=== PATIENT | male | born 1955 | race Caucasian/White ===

== ENCOUNTER 2019-10-25 15:03 | Inpatient (IN) | payer BC ==
[~2019-10-25] VITALS: Ht 175.3 cm; Wt 98.0 kg
--- NOTE | ~2019-10-25 | DS ---
PATIENT:NADEEM VILLASENOR :59 MEDICAL RECORD: [id number] DISCHARGE SUMMARY ADMISSION DATE: 10/30/19 DISCHARGE DATE: 11/02/19 DATE OF ADMISSION: 10/30/2019 DATE OF DISCHARGE: 11/02/2019 ADMISSION DIAGNOSES: 1. Cecal adenocarcinoma. 2. Hemochromatosis. DISCHARGE DIAGNOSES: 1. Cecal adenocarcinoma. 2. Hemochromatosis. PROCEDURE: Hand-assisted laparoscopic right hemicolectomy on, 10/30/2019 CONSULTATIONS: None. Had courtesy consult with Dr. Ramon with oncology. REPORT OF HOSPITALIZATION: The patient was admitted to the hospital after a successful hand-assisted laparoscopic right hemicolectomy. He had a normal postoperative course. He began having bowel function on postop day #2, at which time, he was started on a diet. He tolerated the diet and was able to be advanced up and at the time of discharge, he was tolerating a full liquid diet. His path report came back showing a T1 lesion with of 0 of 4 lymph nodes involved. The patient was then felt to be stable for discharge home. DISCHARGE INSTRUCTIONS: Return to clinic or call if any questions or concerns, fevers, chills, nausea, vomiting or worsening abdominal pain. ACTIVITIES: No heavy lifting or straining for 6 weeks postoperatively. FOLLOWUP: In clinic with me in 10-14 days. DISCHARGE MEDICATIONS: Sherwood 10, fenofibrate 40 mg morning, , multivitamin daily and levothyroxine 112 mcg daily. DIET: Regular. TRANSINT:[id number] Voice Confirmation ID: [id number] DOCUMENT ID: [id number] GABRIELA LAO MD CC: [id number] DICTATION DATE: 11/02/19 1241 DIRECTOR OF PROGRAMMING: 11/03/19 0344 DIS IN 11/02/19 [facility] [address] [place] [address]
[2019-10-29] MEDS ORDERED: FENOGLIDE40 MG (15:45)
[2019-10-29] MEDS ORDERED: LEVO-T112 MCG PO (15:46)
[2019-10-29] MEDS ORDERED: MULTI-DAY VITAM1 TAB PO (15:46)
[2019-10-29] MEDS ORDERED: FERROUS SULFAT325 MG PO (15:47)
[2019-10-30] MEDS ORDERED: FLAGYL500 MG PO (08:41)
[2019-10-30] MEDS ORDERED: NEOMYCIN SULFA500 MG PO (08:41)
[2019-10-30 08:44] VITALS: BP 165/90; BMI 31.9
[2019-10-30 09:40] LABS: APTT 29.9 SECONDS (22.8-39.4); INR 1.07 (0.85-1.17); PROTIME 13.8 SECONDS (11.6-15.0)
[2019-10-30 09:42] LABS: BASOPHILS 0.4 % (0-2); EOSINOPHILS 4.4 % (0-7); HEMATOCRIT 42.4 % (42.0-54.0); IMMATURE GRANULOCYTES 0.3 % (0-5); LYMPHOCYTES 24.4 % (15-50); MEAN PLATELET VOLUME 10.2 fL (7.4-10.4); MONOCYTES 7.5 % (2-11); PLATELET COUNT 258 10x3/uL (130-400); RBC 4.66 10x6/uL (4.20-6.10); WBC 7.1 10x3/uL (4.8-10.8)
[2019-10-30 10:00] LABS: ANION GAP 11.3 mmol/L (8-16); CALCIUM 8.9 mg/dL (8.5-10.1); CREATININE - SERUM 1.9 mg/dL (0.6-1.3); POTASSIUM - SERUM 4.3 mmol/L (3.5-5.1)
[2019-10-30 12:14] LABS: PLATELET ESTIMATE NORMAL; ROULEAUX OCC; SMUDGE CELLS OCC
--- NOTE | 2019-10-30 14:33 | NUR ---
TRANSFERING CARE TO GELACIO CALDERA [id number]
--- NOTE | 2019-10-30 14:43 | NUR ---
PATIENT HAS 2WAY BENDER CATHETER, STATLOCK ON RIGHT INNER THIGH, 400CC URINE RETURN IN DRAINAGE BAG.
--- NOTE | 2019-10-30 15:00 | NUR ---
RECIEVED PT FROM PACU, VSS. IV TO THE RIGHT FOREARM WITH NORMAL SALINE @125, SCD'S ON. PT IS ON Q15 MINUTE FOR POST OP VITALS. RESTING COMFORTABLY IN BED. ALERT AND ORIENTED X4, JUST SLIGHTLY GROGGY FROM ANESTHESIA. DENIES ANY NEEDS. BED IN LOWEST POSITION, BED RAILS X2, CALL LIGHT WITHIN REACH. WILL CONTINUE TO MONITOR.
--- NOTE | 2019-10-30 15:06 | NUR ---
VERIFYING SPECIALIST BIPIN RUANO IN ROOM, POST OP VITALS FOLLOWS; BP 178/85 O2 93% ROOM AIR, PULSE 89. TEMP 98.0 [id number]
[2019-10-30 16:06] VITALS: BP 178/85
[2019-10-30 16:26] VITALS: BP 178/85; BMI 31.9
[2019-10-30 20:00] VITALS: BP 138/74
--- NOTE | 2019-10-30 20:15 | NUR ---
LYING IN BED. ALERT AND ORIENTED X4. RESP EVEN AND NONLABORED. RATES PAIN IN ABD 2. HAS DILAUDID PAYABLE MANAGER. MIDLINE ABD DRSG IS INTACT WITH OLD DRAINAGE MARKED. LAP SITE X2 WITH DRSG INTACT AND OLD DRAINAGE MARKED ON MID UPPER QUAD INCISION. BENDER CATH PATENT AND DRAINING CLEAR YELLOW URINE. SCDS IN USE. NONPROD COUGH NOTED. INSTRUCTED ON USE OF I.S. NS @ 125 MLHR INFUSING IN RT FOREARM. SR ELEVATED X2. CL IN REACH.
[2019-10-31] VITALS: BP 139/61
--- NOTE | 2019-10-31 03:14 | NUR ---
HAS RESTED WELL TONIGHT. NO DISTRESS. ARRNO ICE CHIPS. CL IN REACH.
[2019-10-31 04:00] VITALS: BP 122/73
[2019-10-31 06:02] LABS: ANION GAP 14.8 mmol/L (8-16); CALCIUM 8.2 mg/dL (8.5-10.1); POTASSIUM - SERUM 4.8 mmol/L (3.5-5.1)
[2019-10-31 06:04] LABS: HEMATOCRIT 38.6 % (42.0-54.0); HEMOGLOBIN 12.3 g/dL (13.5-17.5); MCH 29.8 pg (26.0-34.0); MCHC 31.9 g/dL (31.0-37.0); MEAN PLATELET VOLUME 10.4 fL (7.4-10.4); PLATELET COUNT 272 10x3/uL (130-400); RBC 4.13 10x6/uL (4.20-6.10)
[2019-10-31 06:05] LABS: MCV 93.5 fL (80.0-100.0); WBC 12.1 10x3/uL (4.8-10.8)
--- NOTE | 2019-10-31 07:41 | NUR ---
RESTING IN BED, NO DISTRESS NOTED, IV INFUSING WITH HIGHWAY TRUCK DRIVER, CONT TO MONITOR PAIN, NPO
--- NOTE | 2019-10-31 08:11 | OP ---
PATIENT NAME: NADEEM VILLASENOR MEDICAL RECORD: [id number] :59 LOCATION:[facility] [id number] ADMISSION DATE:10/30/19 SURGEON: KHALIF LAO MD DATE OF OPERATION: 10/30/2019 PREOPERATIVE DIAGNOSES: 1. Cecal adenocarcinoma. 2. Anemia. 3. Hemochromatosis. 4. Hypercholesterolemia. 5. Hypothyroidism. POSTOPERATIVE DIAGNOSES: 1. Cecal adenocarcinoma 2. Anemia. 3. Hemochromatosis. 4. Hypercholesterolemia. 5. Hypothyroidism. PROCEDURE: Hand-assisted laparoscopic right hemicolectomy. SURGEON: Khalif Lao MD REPORT OF PROCEDURE: The patient's abdomen was prepped and draped in sterile fashion. A skin incision was made around the umbilicus and electrocautery was used to dissect through the subcutaneous tissues and fascia until we entered the abdominal cavity. A Gelport was inserted with a 5-mm trocar within it. With this, we were able to insufflate the abdomen and placed a 5-mm trocar in the epigastrium and another was placed in the right subcostal region. We began by mobilizing the right colon medially by taking down the white line of Toldt using electrocautery. There were some adhesions present of the cecum and distal small bowel and appendix to the lateral abdominal wall and these were all taken down carefully with electrocautery and blunt dissection. We came around the patient's hepatic flexure using electrocautery and took down some of these adhesions. We eventually were able to mobilize the whole right colon medially and could visualize the patient's duodenum, which was preserved. The colon was then eviscerated through the wound protector. The distal small bowel was transected with a 55 blue load GLADYS stapler. The transverse colon was transected on its proximal aspect using a 55 blue load GLADYS stapler. The mesentery was taken down with sequential clamp and tie technique, we sent the specimen off for permanent. The anastomosis was performed in a [id number] fashion by making small openings in the distal small bowel and proximal colon and firing a 55 blue load GLADYS stapler. We then closed off the enterotomies with a 30 blue load TA stapler and oversewed the staple lines with 3-0 silks. The anastomosis was placed back into the abdominal cavity. We irrigated out the abdomen thoroughly with normal saline and assured there was no sign of any bleeding. I saw no evidence of any metastatic disease or nodules anywhere throughout the abdominal cavity. At this point, the ports and insufflation were then removed. The midline fascia was closed with a running #1 loop PDS times 2. The skin incisions were then all closed with lydia. COMPLICATIONS: None. CONDITION: Stable. OPERATIVE REPORT [id number] NADEEM VILLASENOR ANESTHESIA: General endotracheal. BLOOD LOSS: 100 mL. TRANSINT:[id number] Voice Confirmation ID: [id number] DOCUMENT ID: [id number] KHALIF LAO MD at 0811 CC: BLUE HEARN and DL SAUER MD [id number] DICTATION DATE: 10/30/19 1350 PLANT TAXONOMY TEACHER: 10/31/19 0053 ADM IN [facility] [address] [place] [address]
[2019-10-31 09:14] VITALS: BP 139/87
[2019-10-31 10:34] LABS: ANISOCYTOSIS OCC; LYMPHOCYTES 14 % (15-50); MONOCYTES 5 % (2-11); NEUTROPHILS 80 % (40-80); PLATELET ESTIMATE NORMAL
[2019-10-31 12:55] VITALS: Ht 175.3 cm; Wt 98.0 kg
--- NOTE | 2019-10-31 13:09 | NUR ---
REMOVED BENDER, ARRON WELL, MONITOR OUTPUT
[2019-10-31 13:59] VITALS: BP 148/75
[2019-10-31 17:10] VITALS: BP 138/79
[2019-10-31 20:00] VITALS: BP 137/82
[2019-11-01] VITALS: BP 169/84
--- NOTE | 2019-11-01 01:23 | NUR ---
DR SAUER IN AT 1999 PT HAD F/C REMOVED AT 1500 HAD NO URIN OUTPUT YET. VERABLE ORDER TO DO BLADER SCAN AND DO INOUY CATH IF NEEDED IF PT DID NOT VOID SOON. AT 215 BLADER SCAN COMPLETED WITH 340 SHOWING ON SCAN. IN OUT CATH COMPLETED PER PROTOCOL WITH 400CC YELLOW URING OUT. PT STATED HE FELT BETTER.
--- NOTE | 2019-11-01 02:29 | NUR ---
PT. C\O FEELING BLADDER FEELING FULL AND STILL UNABLE TO URNATE. STOOD AT BEDSIDE WITH WATER RUNNING WITH NO RESULT. BLADER SCAN SHOWING 410 INOUT CATH PER ORDER PRFORMED BY PROTOCOL WITH 400 CC OUT PUT WITH SOME SEDAMENT NOTED. PT STATED HE FELT MUCH BETTER.
--- NOTE | 2019-11-01 03:01 | NUR ---
PATIENT IS ALERT AND ORENTED ABLE TO VIOCE NEEDS AND WANTS TO STAFF. IV TO RIGHT FOREARM WITH NS AT 125 AND DILAUDIDI SOLID PROPELLANT PROCESSOR AT 0.2,10, 4. O2 AT 2LETERS PRN.INCENTIVE SPIROMETER IN [place] AT BEDSIDE ICE CHIPS AT BEDSIDE. SCD'S IN PLACE AND ON.
[2019-11-01 04:00] VITALS: BP 112/73
[2019-11-01 04:37] LABS: HEMATOCRIT 36.1 % (42.0-54.0); HEMOGLOBIN 11.3 g/dL (13.5-17.5); LYMPHOCYTES 9.9 % (15-50); MCH 29.4 pg (26.0-34.0); MCHC 31.3 g/dL (31.0-37.0); MCV 93.8 fL (80.0-100.0); MEAN PLATELET VOLUME 10.2 fL (7.4-10.4); NEUTROPHILS 84.7 % (40-80); RBC 3.85 10x6/uL (4.20-6.10); RDW 24.3 % (11.5-14.5); WBC 12.1 10x3/uL (4.8-10.8)
[2019-11-01 04:38] LABS: PLATELET COUNT 214 10x3/uL (130-400)
[2019-11-01 04:49] LABS: ANION GAP 9.1 mmol/L (8-16); CALCIUM 7.7 mg/dL (8.5-10.1); CREATININE - SERUM 1.7 mg/dL (0.6-1.3); POTASSIUM - SERUM 4.1 mmol/L (3.5-5.1)
--- NOTE | 2019-11-01 07:17 | NUR ---
PT IS RESTING IN BED WITH EYES CLOSED. RESPIRATIONS ARE EVEN AND UNLABORED. PT IS EASILY AROUSED WITH VERBAL STIMULATION. PT IS AAO X 4 UPON AROUSAL. PIV TO RIGHT FA INFUSING WITHOUT DIFFICULTY. DILAUDID ABRASIVE MIXER PER ORDER. PAIN BUTTON WITHIN REACH. SCDS ARE ON BLE. PT DENIES PRESENCE OF PAIN/N/V AT THIS TIME. MIDLINE ABDOMINAL INCISION NOTED. DRESSING WITH SCANT AMOUNT OF DRAININAGE NOTED. (2) UPPER ABDOMINAL INCISIONS NOTED. DRESSING ARE CDI. PT DENIES HAVING HAD BM SINCE SURGERY. PT REPORTS THAT HE IS PASSING GAS. BS ARE HYPOACTIVE X 4. PT ABDOMEN IS DISTENDED AND FIRM. PT DENIES TENDERNESS UPON PALPATION. ALL FALL PRECAUTIONS IN PLACE. BED IS IN THE LOWEST POSITION. CALL LIGHT AND BEDSIDE TABLE ARE WITHIN REACH. SIDE RAILS X 2. PT DENIES FURTHER NEEDS. WILL CONT TO MONITOR.
[2019-11-01 09:12] VITALS: BP 160/84
--- NOTE | 2019-11-01 13:00 | NUR ---
PT WITH BM PT REPORTS BRIGHT RED BLOOD NOTICED IN STOOL. PT DENIES PRESENCE OF PAIN WITH DEFECATION. UNABLE TO VISUALIZE STOOL. PT ASSISTED BACK TO BED WITHOUT DIFFICULTY. PT DENIES PRESENCE OF PAIN/N/V AT THIS TIME. BED IS IN THE LOWEST POSITION. CALL LIGHT AND BEDSIDE TABLE ARE WITHIN REACH. SIDE RAILS X 2. PT DENIES FURTHER NEEDS. WILL CONT TO MONITOR.
[2019-11-01 13:20] VITALS: BP 146/82
--- NOTE | 2019-11-01 13:46 | NUR ---
PT C/O "TRYING TO COUGH SOMETHING UP". DR LAO PAGED AND NOTIFIED OF PT CONCERN. TELEPHONE ORDER RECD MUCINEX 600MG PO X 1. WILL PLACE ORDER.
--- NOTE | 2019-11-01 14:07 | MORECARE ---
CASE MANAGEMENT DISCHARGE SUMMARY PATIENT: NADEEM VILLASENOR UNIT: [id number] ADM DATE: 10/30/19 AGE: 64 : 59 SEX: M ROOM/BED: D.2209 AUTHOR: HERO,DOC PHYSICIAN: REFERRING PHYSICIAN: GABRIELA LAO MD DATE OF SERVICE: 11/01/19 Discharge Plan Patient Name: NADEEM VILLASENOR Facility: [facility]:[place] : 1955 Planned Disposition: Home Anticipated Discharge Date: Discharge Date: Expected LOS: Initial Reviewer: [email or web address] Initial Review Date: 10/30/2019 Generated: 11/01/19 3:06 pm Comments DCP- Discharge Planning Updated by [email or web address]: Rosemarie Salcido on 11/01/19 1:[address] Patient Name: NADEEM VILLASENOR Admission Status: Elective Accout number: [id number] Admission Date: 10-30-2019 : 1955 Admission Diagnosis: Attending: GABRIELA LAO Current LOS: 2 Anticipated DC Date: Planned Disposition: Home Primary Insurance: [email or web address] [facility] Discharge Planning Comments: CM met with patient to complete initial dc planning assessment. CM educated patient on the CM role and verbal consent given by patient to complete assessment. Patient lives at home with his where he is independent with his care. At discharge patient plans to return home and feels this is a safe discharge. CM discussed availability of home health, rehab services, and medical equipment. Patient denied known discharge needs at this time. CM will continue to follow and will assist as needed with dc plans/needs. Deep Submergence Vehicle Crewmember: Rosemarie Salcido DCPIA - Discharge Planning Initial Assessment Updated by [email or web address]: Rosemarie Salcido on 11/01/19 2:06 pm * Is the patient Alert and Oriented? Yes * How many steps to enter\exit or inside your home? * PCP [place] * [facility]acy [facility] * Preadmission Environment Home with Family * ADLs Independent * Equipment None * List name and contact numbers for known caregivers / representatives who currently or will assist patient after discharge: DAVIS ORTIZ () [phone] * Verbal permission to speak to the caregivers and representatives has been obtained from the patient. N/A * Community resources currently utilized None * Additional services required to return to the preadmission environment? No * Can the patient safely return to the preadmission environment? Yes * Has this patient been hospitalized within the prior 30 days at any hospital? No Patient Name: NADEEM VILLASENOR Page [phone] at 1407 All edits/amendments must be made on the electronic document DICTATION DATE: 11/01/191406 SPORTS TEAM MARKETING INTERN: CELESTE 11/01/191406 RPT#: [id number] DC DATE: STATUS: ADM IN [facility] [address] [place] [address] END OF REPORT
[2019-11-01 20:00] VITALS: BP 160/88
[2019-11-02] VITALS: BP 176/84
[2019-11-02 04:00] VITALS: BP 174/92
--- NOTE | 2019-11-02 07:35 | NUR ---
PT RESTING IN BED WITH EYES CLOSED, EASILY AROUSED TO SPEECH, ALERT AND ORIENTED. IV LOCATED TO RIGHT FOREARM RUNNING NS @ 75 WITH DILAUDID SKIVER COUNTER PRESENT. NO CURRENT S/S OF DISTRESS AT THIS TIME, DENIES CURRENT NEEDS, WILL CONT TO MONITOR.
[2019-11-02 09:08] VITALS: BP 157/83
[2019-11-02 12:15] VITALS: BP 155/81
[2019-11-02] MEDS ORDERED: HYDROCODON-ACE1 EA10 PO (12:31)
--- NOTE | 2019-11-02 12:57 | MORECARE ---
CASE MANAGEMENT DISCHARGE SUMMARY PATIENT: NADEEM VILLASENOR UNIT: [id number] ADM DATE: 10/30/19 AGE: 64 : 59 SEX: M ROOM/BED: D.2209 AUTHOR: HERO,DOC PHYSICIAN: REFERRING PHYSICIAN: GABRIELA LAO MD DATE OF SERVICE: 11/02/19 Discharge Plan Patient Name: NADEEM VILLASENOR Facility: [facility]:[place] : 1955 Planned Disposition: Home Anticipated Discharge Date: 11/02/19 Discharge Date: Expected LOS: 3 Initial Reviewer: [email or web address] Initial Review Date: 10/30/2019 Generated: 11/02/19 1:57 pm Comments DCP- Discharge Planning Updated by [email or web address]: Rosemarie Salcido on 11/01/19 1:[address] Patient Name: NADEEM VILLASENOR Admission Status: Elective Accout number: [id number] Admission Date: 10-30-2019 : 1955 Admission Diagnosis: Attending: GABRIELA LAO Current LOS: 2 Anticipated DC Date: Planned Disposition: Home Primary Insurance: [employer] [facility] Discharge Planning Comments: CM met with patient to complete initial dc planning assessment. CM educated patient on the CM role and verbal consent given by patient to complete assessment. Patient lives at home with his where he is independent with his care. At discharge patient plans to return home and feels this is a safe discharge. CM discussed availability of home health, rehab services, and medical equipment. Patient denied known discharge needs at this time. CM will continue to follow and will assist as needed with dc plans/needs. Wedding Decorator: Rosemarie Salcido DCPIA - Discharge Planning Initial Assessment Updated by [email or web address]: Rosemarie Salcido on 11/01/19 2:06 pm * Is the patient Alert and Oriented? Yes * How many steps to enter\exit or inside your home? * PCP [facility]ADA * [facility] * Preadmission Environment Home with Family * ADLs Independent * Equipment None * List name and contact numbers for known caregivers / representatives who currently or will assist patient after discharge: DAVIS ORTIZ () [phone] * Verbal permission to speak to the caregivers and representatives has been obtained from the patient. N/A * Community resources currently utilized None * Additional services required to return to the preadmission environment? No * Can the patient safely return to the preadmission environment? Yes * Has this patient been hospitalized within the prior 30 days at any hospital? No Last DP export: 11/01/19 1:07 p Patient Name: NADEEM VILLASENOR Page [phone] at 1257 All edits/amendments must be made on the electronic document DICTATION DATE: 11/02/19 1257 ONLINE MARKETING STRATEGIST: CELESTE 11/02/19 1257 RPT#: [id number] DC DATE: STATUS: ADM IN [facility] [address] [place] [address] END OF REPORT
--- NOTE | 2019-11-02 13:09 | MORECARE ---
CASE MANAGEMENT DISCHARGE SUMMARY PATIENT: NADEEM VILLASENOR UNIT: [id number] ADM DATE: 10/30/19 AGE: 64 : 59 SEX: M ROOM/BED: D.2209 AUTHOR: HERO,DOC PHYSICIAN: REFERRING PHYSICIAN: GABRIELA LAO MD DATE OF SERVICE: 11/02/19 Discharge Plan Patient Name: NADEEM VILLASENOR Facility: [facility]:[place] : 1955 Planned Disposition: Home Anticipated Discharge Date: 11/02/19 Discharge Date: Expected LOS: 3 Initial Reviewer: [email or web address] Initial Review Date: 10/30/2019 Generated: 11/02/19 2:08 pm Comments DCP- Discharge Planning Updated by [email or web address]: Leidy Baker on 11/02/19 12:[address] CM VISITED THE PATIENT AND HIS AT THE BEDSIDE. THEY ARE READY FOR DISCHARGE. CM ASK IF THEY HAD ANY DISCHARGE NEEDS. BOTH DENIED NEEDS. CM ADVISED ALLIED HEALTH TEACHER. DCP- Discharge Planning Updated by [email or web address]: Rosemarie Salcido on 11/01/19 1:[address] Patient Name: NADEEM VILLASENOR Admission Status: Elective Accout number: [id number] Admission Date: 10-30-2019 : 1955 Admission Diagnosis: Attending: GABRIELA LAO Current LOS: 2 Anticipated DC Date: Planned Disposition: Home Primary Insurance: [employer] [facility] Discharge Planning Comments: CM met with patient to complete initial dc planning assessment. CM educated patient on the CM role and verbal consent given by patient to complete assessment. Patient lives at home with his where he is independent with his care. At discharge patient plans to return home and feels this is a safe discharge. CM discussed availability of home health, rehab services, and medical equipment. Patient denied known discharge needs at this time. CM will continue to follow and will assist as needed with dc plans/needs. Director Work: Rosemarie Salcido DCPIA - Discharge Planning Initial Assessment Updated by [email or web address]: Rosemarie Salcido on 11/01/19 2:06 pm * Is the patient Alert and Oriented? Yes * How many steps to enter\exit or inside your home? * PCP [place] * [facility] * Preadmission Environment Home with Family * ADLs Independent * Equipment None * List name and contact numbers for known caregivers / representatives who currently or will assist patient after discharge: DAVIS ORTIZ () [phone] * Verbal permission to speak to the caregivers and representatives has been obtained from the patient. N/A * Community resources currently utilized None * Additional services required to return to the preadmission environment? No * Can the patient safely return to the preadmission environment? Yes * Has this patient been hospitalized within the prior 30 days at any hospital? No Last DP export: 11/02/19 11:57 a Patient Name: NADEEM VILLASENOR Page 31625 at 1309 All edits/amendments must be made on the electronic document DICTATION DATE: 11/02/19 1309 VENDING MACHINE OPERATOR: CELESTE 11/02/19 1309 RPT#: [id number] DC DATE: STATUS: ADM IN [facility] [address] [place] [address] END OF REPORT
--- NOTE | 2019-11-02 13:33 | NUR ---
NEW DRESSING APPLIED TO ABDOMEN. IV REMOVED WITH CATHETER TIP INTACT. DC`D VIA WHEELCHAIR AND HOSPITAL STAFF HOME WITH WITH , NO CONCERNS.
--- NOTE | 2019-11-02 17:19 | MORECARE ---
CASE MANAGEMENT DISCHARGE SUMMARY PATIENT: NADEEM VILLASENOR UNIT: [id number] ADM DATE: 10/30/19 AGE: 64 : 59 SEX: M ROOM/BED: D.2209 AUTHOR: HERODOC PHYSICIAN: REFERRING PHYSICIAN: GABRIELA LAO MD DATE OF SERVICE: 11/02/19 Discharge Plan Patient Name: NADEEM VILLASENOR Facility: [facility]:[place] : 1955 Planned Disposition: Home Anticipated Discharge Date: 11/02/19 Discharge Date: 11/02/2019 Expected LOS: 3 Initial Reviewer: [email or web address] Initial Review Date: 10/30/2019 Generated: 11/02/19 6:19 pm Comments DCP- Discharge Planning Updated by [id number]: Leidy Baker on 11/02/19 12:[address] CM VISITED THE PATIENT AND HIS AT THE BEDSIDE. THEY ARE READY FOR DISCHARGE. CM ASK IF THEY HAD ANY DISCHARGE NEEDS. BOTH DENIED NEEDS. CM ADVISED FELT STRIP FINISHER. DCP- Discharge Planning Updated by [email or web address]: Rosemarie Salcido on 11/01/19 1:[address] Patient Name: NADEEM VILLASENOR Admission Status: Elective Accout number: [id number] Admission Date: 10-30-2019 : 1955 Admission Diagnosis: Attending: GABRIELA LAO Current LOS: 2 Anticipated DC Date: Planned Disposition: Home Primary [facility] Discharge Planning Comments: CM met with patient to complete initial dc planning assessment. CM educated patient on the CM role and verbal consent given by patient to complete assessment. Patient lives at home with his where he is independent with his care. At discharge patient plans to return home and feels this is a safe discharge. CM discussed availability of home health, rehab services, and medical equipment. Patient denied known discharge needs at this time. CM will continue to follow and will assist as needed with dc plans/needs. Certified Personal Finance Counselor: Rosemarie Salcido DCPIA - Discharge Planning Initial Assessment Updated by [email or web address]: Rosemarie Salcido on 11/01/19 2:06 pm * Is the patient Alert and Oriented? Yes * How many steps to enter\exit or inside your home? * PCP [place] * [facility] * Preadmission Environment Home with Family * ADLs Independent * Equipment None * List name and contact numbers for known caregivers / representatives who currently or will assist patient after discharge: DAVIS ORTIZ () [phone] * Verbal permission to speak to the caregivers and representatives has been obtained from the patient. N/A * Community resources currently utilized None * Additional services required to return to the preadmission environment? No * Can the patient safely return to the preadmission environment? Yes * Has this patient been hospitalized within the prior 30 days at any hospital? No Last DP export: 11/02/19 12:09 p Patient Name: NADEEM VILLASENOR Page [phone] at 1712 All edits/amendments must be made on the electronic document DICTATION DATE: 11/02/191718 BUILDING RENTAL SUPERINTENDENT: CELESTE 11/02/199 RPT#: [id number] DC DATE:11/02/19 STATUS: DIS IN [facility] [address] [place] [address] END OF REPORT
== END 2019-11-02 13:34 | disposition home or self-care (01) | DRG 331 ==
LOC: D.SDCHOLD 10-30 08:13 → D.MS 10-30 08:13 → D.SDCHOLD 10-30 09:45 → D.MS 10-30 14:28
PROVIDERS: Anesthesiology; ADMIT Surgery; ATTEND Surgery
PROC: 0DTF0ZZ Resection of Right Large Intestine, Open Approach (ICD-10-PCS; principal; 2019-10-30 10:30)
DX: C18.0 Malignant neoplasm of cecum (principal); E03.9 Hypothyroidism, unspecified; E78.00 Pure hypercholesterolemia, unspecified; R33.9 Retention of urine, unspecified; E83.119 Hemochromatosis, unspecified